=== PATIENT | female | born 1960 | race Caucasian/White ===

== ENCOUNTER → 2018-10-19 13:12 | Outpatient (CLI) | payer OTHER, SELFPAY | PROVIDERS: Visit Provider Physician Assistant | DX: R68.89 Other general symptoms and signs (principal) | CPT/HCPCS: 87400 ==

== ENCOUNTER → 2019-04-20 14:34 | Outpatient (CLI) | payer OTHER, SELFPAY ==
--- NOTE | 2019-04-20 14:42 | DI.RAD.S_ITS ---
PROCEDURE: XR WRIST RT MIN 3V INDICATIONS: l hand pain TECHNIQUE: 3 views of the wrist were acquired. COMPARISON: None. FINDINGS: Bones: No displaced fractures or dislocations. No suspicious bony lesions. Mild degenerative changes are noted involving the basal joint of the thumb. The bone mineralization appears to be decreased. Soft tissues: No suspicious soft tissue calcifications. IMPRESSION: 1. No acute fracture of the left hand. 2. Mild degenerative changes involving the basal joint of the thumb. Dictated by: Lacho Escalante M.D. on 04/20/2019 at 13:59 Approved by: Lacho Escalante M.D. on 04/20/2019 at 14:00
--- NOTE | 2019-04-20 14:42 | DI.RAD.S_ITS ---
PROCEDURE: XR HAND RT MIN 3V INDICATIONS: l hand pain TECHNIQUE: 3 views of the hand(s) acquired. COMPARISON: None. FINDINGS: Bones: No displaced fractures or dislocations. Carpal bones are normally aligned. No suspicious bony lesions. Mild degenerative changes involving the joints of the thumb are present. Soft tissues: No suspicious soft tissue calcifications. IMPRESSION: No acute osseous abnormality of the right hand. Dictated by: Lacho Escalante M.D. on 04/20/2019 at 14:00 Approved by: Lacho Escalante M.D. on 04/20/2019 at 14:02
== END ==
PROVIDERS: PCP Physician Assistant Medical; Visit Provider Physician Assistant
DX: M79.641 Pain in right hand (principal)
CPT/HCPCS: 73110; 73130

== ENCOUNTER → 2020-03-26 09:20 | Outpatient (CLI) | payer OTHER, SELFPAY ==
--- NOTE | 2020-03-26 09:25 | DI.RAD.S_ITS ---
PROCEDURE: XR RIBS LT MIN 3V W CXR1V INDICATIONS: l rib pain TECHNIQUE: 2 views of the left ribs were acquired, along with a single view chest. COMPARISON: None. FINDINGS: Surgical changes and devices: Fusion hardware in visualized portion of lower lumbar spine is seen. Bones and chest wall: No fractures or dislocations. No suspicious bony lesions. Overlying soft tissues appear unremarkable. Lungs and pleura: No pleural effusions or pneumothorax. Lungs appear clear. Mediastinum: Mediastinal contours appear normal. Heart size is normal. IMPRESSION: No obvious displaced left rib fracture. No acute cardiopulmonary pathology. Dictated by: Jordy Lockwood M.D. on 03/26/2020 at 8:53 Approved by: Jordy Lockwood M.D. on 03/26/2020 at 8:54
== END ==
PROVIDERS: Referring Provider Physician Assistant; Visit Provider Physician Assistant
DX: R07.81 Pleurodynia (principal)
CPT/HCPCS: 71101

== ENCOUNTER → 2022-01-14 07:54 | Outpatient (CLI) | payer OTHER, SELFPAY ==
--- NOTE | 2022-01-14 07:57 | DI.MRI.S_ITS ---
PROCEDURE: MR CERVICAL SPINE WO CON INDICATIONS: Cervicalgia/Low back pain TECHNIQUE: Noncontrast sagittal T1 spin echo and T2 fast spin echo, sagittal STIR, foraminal oblique sagittal T2 fast spin echo, and axial gradient echo or T2 fast spin echo through the cervical spine. COMPARISON: None. FINDINGS: Image quality: Excellent. Alignment and Curvature: Loss of normal cervical lordosis is present. Moderate kyphosis at C4-C6 is present. Bone Marrow: Marrow demonstrates normal overall signal. There is mild reactive signal throughout the endplates of the cervical and upper thoracic spine. Spinal Cord: Visualized spinal cord has normal size and signal. No cerebellar tonsillar herniation. Paraspinous Soft Tissues: No paravertebral masses. Prevertebral soft tissues are normal in thickness. C2-C3: Mild disc desiccation and diffuse disc bulge. Mild facet and uncovertebral hypertrophy bilaterally. Mild canal stenosis. Mild bilateral foraminal stenosis. C3-C4: Mild disc desiccation. Mild facet and uncovertebral hypertrophy bilaterally. No significant canal stenosis. Mild bilateral foraminal stenosis. C4-C5: Moderate disc desiccation. Mild diffuse disc bulge. Mild facet and uncovertebral hypertrophy bilaterally. Moderate canal stenosis. Moderate bilateral foraminal stenosis. C5-C6: Moderate disc desiccation. Mild disc height loss and diffuse disc bulge with superimposed left posterolateral broad-based protrusion. Mild facet and uncovertebral hypertrophy bilaterally. Moderate to severe canal stenosis. Mild left cord flattening. Moderate left greater than right foraminal stenosis. C6-C7: Moderate disc height loss and desiccation. Mild diffuse disc bulge. Mild facet and uncovertebral hypertrophy bilaterally. Moderate to severe canal stenosis. Severe left and moderate to severe right foraminal stenosis. Left greater than right C7 nerve root compression. C7-T1: Mild disc desiccation and diffuse disc bulge. Mild bilateral facet and uncovertebral hypertrophy. Mild canal stenosis. Moderate bilateral foraminal stenosis. No significant change. IMPRESSION: 1. Multilevel degenerative disc and facet disease, as well as uncovertebral hypertrophy. 2. Multilevel canal stenoses, worst at C5-C6 and C6-C7 where there are moderate to severe canal stenosis. Mild cord flattening at C5-C6 is present. 3. Multilevel foraminal stenoses, worst at C6-C7 where there is associated intraforaminal nerve root compression. Recommend correlation with clinical symptoms to ascertain relevance of this finding. Dictated by: Alberto Barker M.D. on 01/16/2022 at 8:44 Approved by: Alberto Barker M.D. on 01/16/2022 at 8:47
--- NOTE | 2022-01-14 07:57 | DI.MRI.S_ITS ---
PROCEDURE: MR LUMBAR SPINE WO CON INDICATIONS: Cervicalgia/Low back pain TECHNIQUE: Noncontrast sagittal T1 spin echo and T2 fast echo, sagittal STIR, axial T1 and T2 fast spin echo through the lumbar spine In cases with scoliosis, additional coronal T2 fast spin echo may be performed. COMPARISON: None. FINDINGS: Image quality: Excellent. Alignment and Curvature: There is mild, approximately 6 millimeters of L5-S1 anterolisthesis.. Bone Marrow: L4-S1 fusion. Modic type 2 reactive endplate changes noted adjacent to the L4-L5 and L5-S1 discs. No acute vertebral body compression fractures. No sacral fractures. Spinal Cord: Conus medullaris terminates at the T12-L1 disc level. Visualized cord demonstrates normal signal and size. Paraspinous Soft Tissues: No paravertebral masses. T12-L1: Loss disc signal. Mild to moderate diffuse disc bulge. Mild narrowing of the central canal. No neural foraminal narrowing. No neural compression. L1-L2: Loss of disc signal and slight loss of disc height. Mild to moderate diffuse disc bulge. Right central/right foraminal disc protrusion. Mild narrowing of the central canal. Mild to moderate bilateral neural foraminal narrowing. No neural compression. Fissures noted in the annulus. L2-L3: Normal appearance. L3-L4: Loss of disc signal and height. Moderate, diffuse disc bulge. Mild bilateral facet hypertrophy. Mild to moderate narrowing of the central canal. Mild to moderate bilateral neural foraminal narrowing. No neural compression. L4-L5: Status post fusion. No central stenosis. Mild bilateral neural foraminal narrowing. No neural compression. L5-S1: Status post fusion. No central stenosis. Mild bilateral neural foraminal narrowing. No neural compression. IMPRESSION: 1. L4-S1 fusion. 2. Multilevel degenerative disc disease. 3. No severe central canal narrowing. 4. No severe neural foraminal narrowing. 5. No neural compression. Dictated by: Carissa Borrego MD, PhD on 01/16/2022 at 9:34 Approved by: Carissa Borrego MD, PhD on 01/16/2022 at 9:48
== END ==
PROVIDERS: PCP Obstetrics & Gynecology; Referring Provider Orthopaedic Surgery; Visit Provider Orthopaedic Surgery
DX: M51.36 Other intervertebral disc degeneration, lumbar region (principal); M50.31 Other cervical disc degeneration, high cervical region; M48.02 Spinal stenosis, cervical region; M54.50 Low back pain, unspecified; Z98.1 Arthrodesis status
CPT/HCPCS: 72141; 72148

== ENCOUNTER → 2022-05-19 13:08 | Outpatient (CLI) | payer OTHER, SELFPAY ==
--- NOTE | 2022-05-19 13:16 | DI.RAD.S_ITS ---
PROCEDURE: XR CLAVICLE RT INDICATIONS: ASYMMETRIC HYPERTROPHY TECHNIQUE: 2 views of the clavicle were acquired. COMPARISON: None. FINDINGS: Bones: No fractures or dislocations. No suspicious bony lesions. Soft tissues: No suspicious soft tissue calcifications. IMPRESSION: No acute radiographic abnormality. If there is high concern for further derangement, consider MRI evaluation. Dictated by: Phill Ambrosio M.D. on 05/19/2022 at 14:40 Approved by: Phill Ambrosio M.D. on 05/19/2022 at 14:41
== END ==
PROVIDERS: PCP Obstetrics & Gynecology; Referring Provider Registered Nurse; Visit Provider Registered Nurse
DX: M89.311 Hypertrophy of bone, right shoulder (principal)
CPT/HCPCS: 73000